=== PATIENT | male | born 1965 | race Caucasian/White ===

== ENCOUNTER 2022-07-04 14:59 | Emergency (ER) | payer OTHER, SELFPAY ==
[2022-07-04] VITALS (10 sets, daily range): BP systolic 139–181; BP diastolic 78–121; PULSE 95–118; RESP 11–20; TEMP 36.8–37.2; O2SAT 94–99; BMI 27.1
--- NOTE | ~2022-07-04 | XR_ITS ---
EXAMINATION: XR CHEST CLINICAL INFORMATION: Fever COMPARISON: None available. TECHNIQUE: Frontal view of the chest was obtained. FINDINGS: No significant abnormality is noted involving the heart, lungs, mediastinum, bony thorax or soft tissues. XR/XR chest 1V IMPRESSION: Unremarkable examination.
--- NOTE | 2022-07-04 15:06 | ED.GENADULT ---
HPI - General Adult General Chief complaint: ETOH/Substance Use <ALPA Sadler - Last Filed: 07/04/22 15:10> Stated complaint: HBP/Sweating/Shakiness/Started new meds <ALPA Sadler - Last Filed: 07/04/22 15:10> Time Seen by Provider: 07/04/22 16:10 <ALPA Sadler - Last Filed: 07/04/22 15:10> Source: patient <Jeny Green MD - Last Filed: 07/04/22 20:14> Mode of arrival: ambulatory <Jeny Green MD - Last Filed: 07/04/22 20:14> Limitations: no limitations <Jeny Green MD - Last Filed: 07/04/22 20:14> History of Present Illness HPI narrative: Patient comes to the emergency room complaining of shakiness, lightheadedness. Patient states that this started approximately a week ago. Of note, patient has been seen at urgent care and was recently started on amlodipine. However, patient's blood pressure has been high. On arrival to the ED, it was noted that patient has shakiness/tremor, elevated blood pressure, tachycardic. Patient admits that he drinks daily. Patient's was at bedside states that her is losing count of how much he drinks. Usually drinks approximately 15 shots every weekend. Last drink was almost 24 hours ago. Patient states that he has never gone to alcohol withdrawal in the past. <Jeny Green MD - Last Filed: 07/04/22 20:14> Related Data Home medications: Previous Rx's Medication Instructions Recorded chlordiazepoxide HCl 5 mg capsule 5 mg PO TID PRN agitation #10 caps 07/04/22 <ALPA Sadler - Last Filed: 07/04/22 15:10> Allergies/adverse reactions: Allergies Allergy/AdvReac Type Severity Reaction Status Date / Time Naproxen Allergy Unknown rash Uncoded 08/03/11 00:00 <ALPA Sadler - Last Filed: 07/04/22 15:10> Review of Systems Review of Systems: Constitutional : No Weight loss, No Fever, No Chills, No Night Sweats, No Fatigue, No Malaise, shakiness/tremors ENT/Mouth : No Hearing loss, No Ear Pain, No Nasal Congestion, No Sinus Pain, No Hoarseness, No sore throat, No Rhinorrhea, No Swallowing Difficulty Eyes: No Eye Pain, No Swelling, No Redness, No Foreign Body, No Discharge, No Vision Changes Cardiovascular : No Chest Pain, No SOB, No Dyspnea on Exertion, No Orthopnea, No Edema, No Palpitations Respiratory : No Cough, No Sputum, No Wheezing, No Smoke Exposure, No Dyspnea Gastrointestinal : No Nausea, No Vomiting, No Diarrhea, No Constipation, No abdominal Pain, No Hematochezia, No Melena Genitourinary : no irregular bleeding, No Dysuria, No Urinary Frequency, No Hematuria, No Urinary Incontinence, No Urgency, No Flank Pain, No Urinary Flow Changes, No Hesitancy Musculoskeletal : No joint pain, No Myalgias, No Joint Swelling Skin : No Skin Lesions, No rash Neuro : No Weakness, No Numbness, No Paresthesias, No Loss of Consciousness, no headache, complaining of intermittent lightheadedness. Psych : No Anxiety/Panic, No Depression, No SI/HI/AH/VH, No Social Issues, Heme/Lymph: No Bruising, No Bleeding,No Lymphadenopathy Endocrine : No Polyuria, No Polydipsia, No Temperature Intolerance <Jeny Green MD - Last Filed: 07/04/22 20:14> [facility] Past Medical History Medical History: Medical History (Updated 07/04/22 @ 20:11 by Jeny rGeen MD) Hypertension <ALPA Sadler - Last Filed: 07/04/22 15:10> Social History Social History: Social History Alcohol intake: current Alcohol intake frequency: 3 or more drinks per day Alcohol type: hard liquor Smoked in Last 30 Days: Yes Use of substances other than those prescribed or required for medical reasons: Yes Substance Use Type: Marijuana Advance Directives: No Advance Directives Information Provided: Yes <ALPA Sadler - Last Filed: 07/04/22 15:10> Physical Exam ED Vital Signs: Vital Signs - 24 hr 07/04/22 15:05 07/04/22 15:37 07/04/22 16:32 Temperature 99.0 F 98.4 F Pulse Rate 118 H 113 H 109 H Respiratory Rate 20 18 11 L Blood Pressure 144/121 H 153/94 H 158/93 H Pulse Oximetry 97 99 96 Oxygen Delivery Method Room Air Room Air Room Air 07/04/22 17:02 07/04/22 19:25 07/04/22 18:22 Temperature 98.6 F Pulse Rate 102 H 97 95 Respiratory Rate 15 16 Blood Pressure 153/88 H 148/89 H 139/78 Pulse Oximetry 96 94 Oxygen Delivery Method Room Air Room Air 07/04/22 19:38 07/04/22 19:39 Temperature Pulse Rate 104 H 111 H Respiratory Rate Blood Pressure 163/91 H 181/100 H Pulse Oximetry Oxygen Delivery Method BMI result Body Mass Index 27.1 <ALPA Sadler - Last Filed: 07/04/22 15:10> Vital Signs - 24 hr 07/04/22 15:05 07/04/22 15:37 07/04/22 16:32 Temperature 99.0 F 98.4 F Pulse Rate 118 H 113 H 109 H Respiratory Rate 20 18 11 L Blood Pressure 144/121 H 153/94 H 158/93 H Pulse Oximetry 97 99 96 Oxygen Delivery Method Room Air Room Air Room Air 07/04/22 17:02 07/04/22 19:25 07/04/22 18:22 Temperature 98.6 F Pulse Rate 102 H 97 95 Respiratory Rate 15 16 Blood Pressure 153/88 H 148/89 H 139/78 Pulse Oximetry 96 94 Oxygen Delivery Method Room Air Room Air 07/04/22 19:38 07/04/22 19:39 Temperature Pulse Rate 104 H 111 H Respiratory Rate Blood Pressure 163/91 H 181/100 H Pulse Oximetry Oxygen Delivery Method BMI result Body Mass Index 27.1 <Jeny Green MD - Last Filed: 07/04/22 20:14> Const Other: Appearance: Alert. Oriented X3. No acute distress. Tremulous Eyes: Pupils equal, round and reactive to light. ENT: Pharynx normal. Neck: Normal inspection. Neck supple. No lymph nodes noted. No crepitus CVS: Tachycardic, heart rate 110, with regular rhythm. Pulses normal. Normal S1 and S2 Respiratory: No respiratory distress. Breath sounds normal. No Wheezing. No rales Abdomen: Soft and nontender. No rigidity. No distention. Skin: Skin warm , diaphoretic. Normal skin color. Normal skin turgor. Extremities: No lower extremity edema. No Lacerations. No Rash Neuro: Oriented X 3. No motor deficit. No sensory deficit. Moving all extremities. No slurred speech. CN 2 through 12 grossly intact Psych: calm, cooperative, normal affect <Jeny Green MD - Last Filed: 07/04/22 20:14> Course Course Course Narrative: RMMyriam - 56 yo male with history of recently diagnosed HTN started on amlodipine by Urgent Care a few days ago, heavy smoker, daily ETOH presents to the ER for evaluation of dizziness, shakiness that started today when he woke up. Last drink was yesterday. No history of withdrawal in the past. HR 110s in triage, diaphoretic and appears to be withdrawing. Plan: labs, CIWA, IVF, ativan. brought directly to treatment room <ALPA Sadler - Last Filed: 07/04/22 15:10> Medications Administered Generic Name Dose Route Start Last Admin Trade Name Freq PRN Reason Stop Dose Admin Magnesium Sulfate 2 gm in 50 mls @ 25 mls/hr 07/04/22 18:21 07/04/22 18:29 Magnesium Sulfate/H2o IV 07/04/22 20:20 25 mls/hr ONCE ONE Administration Discontinued Medications Generic Name Dose Route Start Last Admin Trade Name Freq PRN Reason Stop Dose Admin Sodium Chloride 1,000 mls @ 999 mls/hr 07/04/22 15:15 07/04/22 17:01 Ns IVCONT 07/04/22 16:15 Infused .Q1H1M TOMAS Infusion Sodium Chloride 1,000 mls @ 999 mls/hr 07/04/22 16:26 07/04/22 17:01 Ns IVCONT 07/04/22 17:26 999 mls/hr .Q1H1M ONE Administration Lorazepam 1 mg 07/04/22 15:07 07/04/22 15:32 Lorazepam 2 Mg/Ml Vial IVPUSH 07/04/22 15:08 1 mg ONCE ONE Administration Lorazepam 2 mg 07/04/22 16:23 07/04/22 16:57 Lorazepam 2 Mg/Ml Vial IVPUSH 07/04/22 16:24 2 mg ONCE ONE Administration <ALPA Sadler - Last Filed: 07/04/22 15:10> Medications Administered Generic Name Dose Route Start Last Admin Trade Name Freq PRN Reason Stop Dose Admin Magnesium Sulfate 2 gm in 50 mls @ 25 mls/hr 07/04/22 18:21 07/04/22 18:29 Magnesium Sulfate/H2o IV 07/04/22 20:20 25 mls/hr ONCE ONE Administration Discontinued Medications Generic Name Dose Route Start Last Admin Trade Name Nasreen PRN Reason Stop Dose Admin Sodium Chloride 1,000 mls @ 999 mls/hr 07/04/22 15:15 07/04/22 17:01 Ns IVCONT 07/04/22 16:15 Infused .Q1H1M TOMAS Infusion Sodium Chloride 1,000 mls @ 999 mls/hr 07/04/22 16:26 07/04/22 17:01 Ns IVCONT 07/04/22 17:26 999 mls/hr .Q1H1M ONE Administration Lorazepam 1 mg 07/04/22 15:07 07/04/22 15:32 Lorazepam 2 Mg/Ml Vial IVPUSH 07/04/22 15:08 1 mg ONCE ONE Administration Lorazepam 2 mg 07/04/22 16:23 07/04/22 16:57 Lorazepam 2 Mg/Ml Vial IVPUSH 07/04/22 16:24 2 mg ONCE ONE Administration <Jeny Green MD - Last Filed: 07/04/22 20:14> Medical Decision Making Medical Decision Making MDM Narrative: -patient received 3 mg of IV Ativan, patient states that he feels much better. Heart rate down to the 90s. -I discussed with the patient that he should be admitted for alcohol withdrawal and treatment was offered to him. Patient made aware that alcohol withdrawal can cause life-threatening seizures. Patient respectfully declined. Patient states that he only wants outpatient treatment information. Patient does not want to be admitted and would like to be discharged home. Patient feeling better. Care team evaluated the patient, gave him information. <Jeny Green MD - Last Filed: 07/04/22 20:14> Differential Diagnosis Differential Diagnoses: The differential diagnosis associated with the presentation includes (Substance abuse, alcohol withdrawal, anxiety) <Jeny Green MD - Last Filed: 07/04/22 20:14> Admission/Observation Consideration of admission/observation: Escalation of care including admission/observation considered (Patient declined to be admitted) <Jeny Green MD - Last Filed: 07/04/22 20:14> Consult Healthcare Provider Management of the patient was discussed with: Behavioral Health Provider <Jeny Green MD - Last Filed: 07/04/22 20:14> Lab Data MDM Lab Attestation statement: I reviewed the patient's lab results. <Jeny Green MD - Last Filed: 07/04/22 20:14> Result Diagrams: 07/04/22 15:39 07/04/22 15:39 <ALPA Sadler - Last Filed: 07/04/22 15:10> Labs: Lab Results 07/04/22 07/04/22 07/04/22 Range/Units 15:39 15:39 15:40 WBC 13.8 H (4.8-10.8) X10*3/uL RBC 5.34 (4.60-5.80) X10*6/uL Hgb 17.4 (14.0-18.0) g/dl Hct 49.8 (42.0-52.0) % MCV 93.3 (80.0-98.0) fL MCH 32.6 (27.0-33.0) pg MCHC 34.9 (31.0-36.0) g/dl RDW 13.1 (11.0-16.0) % Plt Count 305 (160-400) X10*3/uL MPV 8.2 L (9.4-12.4) fL Immature Gran % (Auto) 0.5 H (0.0-0.4) % Neut % (Auto) 79.1 H (45-73) % Lymph % (Auto) 14.6 L (20-40) % [place] % (Auto) 5.3 (2-11) % Eos % (Auto) 0.0 (0-4) % Baso % (Auto) 0.5 (0-2) % Lymph # (Auto) 2.0 (1.2-4.9) X10*3/uL [place] # (Auto) 0.7 (0.1-1.2) X10*3/uL Eos # (Auto) 0.0 (0.0-0.4) X10*3/uL Baso # (Auto) 0.1 (0.0-0.2) X10*3/uL Abs Immat Gran (auto) 0.07 H (0.00-0.03) X10*3/uL Absolute Neuts (auto) 10.9 H (2.0-8.3) x10*3/uL Absolute Nucleated RBC 0.000 (0.0-0.012) X10*3/uL Nucleated RBC % (auto) 0.0 (0.0-0.2) /100WBC Sodium 142 (135-145) mmol/L Potassium 4.2 (3.3-5.1) mmol/L Chloride 103 (96-108) mmol/L Carbon Dioxide 27 (22-29) mmol/L Anion Gap 16 (12-20) BUN 6 L (9-16) mg/dL Creatinine 1.05 (0.5-1.4) mg/dL Estim Creat Clear Calc 83.6 Estimated GFR > 60 Random Glucose 119 H (60-115) mg/dL Calcium 9.6 (8.4-10.2) mg/dL Magnesium 1.4 L* (1.6-2.6) mg/dL Total Bilirubin 0.8 (0.0-1.0) mg/dL Direct Bilirubin 0.3 (0.0-0.5) mg/dL AST 33 (5-37) U/L ALT 32 (0-40) U/L Alkaline Phosphatase 73 (39-117) U/L Troponin I High Sens 3.6 (<3.5-35.0) ng/L Total Protein 7.5 (6.5-8.0) g/dL Albumin 4.7 (3.5-5.0) g/dL Lipase 24 (8-78) U/L TSH 8.59 H (0.32-4.0) uIU/mL Free T4 0.80 (0.71-1.85) ng/dL Urine Color Urine Appearance Urine pH (5.0-9.0) Ur Specific [place] (1.005-1.025) Urine Protein (Neg-Trace) mg/dL Urine Glucose (UA) (Negative) mg/dL Urine Ketones (Negative) mg/dL Urine Blood (Negative) Urine Nitrite (Negative) Ur Leukocyte Esterase (Negative) Urine Opiates Screen (Not Detect) Urine Fentanyl Screen (Not Detect) Ur Barbiturates Screen (Not Detect) Ur Phencyclidine Scrn (Not Detect) Ur Amphetamines Screen (Not Detect) U Benzodiazepines Scrn (Not Detect) Urine Cocaine Screen (Not Detect) U Marijuana (THC) Screen (Not Detect) Ethyl Alcohol < 10 mg/dL 07/04/22 07/04/22 Range/Units 19:45 19:45 WBC (4.8-10.8) X10*3/uL RBC (4.60-5.80) X10*6/uL Hgb (14.0-18.0) g/dl Hct (42.0-52.0) % MCV (80.0-98.0) fL MCH (27.0-33.0) pg MCHC (31.0-36.0) g/dl RDW (11.0-16.0) % Plt Count (160-400) X10*3/uL MPV (9.4-12.4) fL Immature Gran % (Auto) (0.0-0.4) % Neut % (Auto) (45-73) % Lymph % (Auto) (20-40) % [place] % (Auto) (2-11) % Eos % (Auto) (0-4) % Baso % (Auto) (0-2) % Lymph # (Auto) (1.2-4.9) X10*3/uL Mil[place] # (Auto) (0.1-1.2) X10*3/uL Eos # (Auto) (0.0-0.4) X10*3/uL Baso # (Auto) (0.0-0.2) X10*3/uL Abs Immat Gran (auto) (0.00-0.03) X10*3/uL Absolute Neuts (auto) (2.0-8.3) x10*3/uL Absolute Nucleated RBC (0.0-0.012) X10*3/uL Nucleated RBC % (auto) (0.0-0.2) /100WBC Sodium (135-145) mmol/L Potassium (3.3-5.1) mmol/L Chloride (96-108) mmol/L Carbon Dioxide (22-29) mmol/L Anion Gap (12-20) BUN (9-16) mg/dL Creatinine (0.5-1.4) mg/dL Estim Creat Clear Calc Estimated GFR Random Glucose (60-115) mg/dL Calcium (8.4-10.2) mg/dL Magnesium (1.6-2.6) mg/dL Total Bilirubin (0.0-1.0) mg/dL Direct Bilirubin (0.0-0.5) mg/dL AST (5-37) U/L ALT (0-40) U/L Alkaline Phosphatase (39-117) U/L Troponin I High Sens (<3.5-35.0) ng/L Total Protein (6.5-8.0) g/dL Albumin (3.5-5.0) g/dL Lipase (8-78) U/L TSH (0.32-4.0) uIU/mL Free T4 (0.71-1.85) ng/dL Urine Color Yellow Urine Appearance Clear Urine pH 7.5 (5.0-9.0) Ur Specific [place] 1.015 (1.005-1.025) Urine Protein Trace (Neg-Trace) mg/dL Urine Glucose (UA) Negative (Negative) mg/dL Urine Ketones Negative (Negative) mg/dL Urine Blood Negative (Negative) Urine Nitrite Negative (Negative) Ur Leukocyte Esterase Negative (Negative) Urine Opiates Screen Not Detected (Not Detect) Urine Fentanyl Screen Not Detected (Not Detect) Ur Barbiturates Screen Not Detected (Not Detect) Ur Phencyclidine Scrn Not Detected (Not Detect) Ur Amphetamines Screen Not Detected (Not Detect) U Benzodiazepines Scrn Not Detected (Not Detect) Urine Cocaine Screen Not Detected (Not Detect) U Marijuana (THC) Screen POSITIVE H (Not Detect) Ethyl Alcohol mg/dL <ALPA Sadler - Last Filed: 07/04/22 15:10> Lab Results 07/04/22 07/04/22 07/04/22 Range/Units 15:39 15:39 15:40 WBC 13.8 H (4.8-10.8) X10*3/uL RBC 5.34 (4.60-5.80) X10*6/uL Hgb 17.4 (14.0-18.0) g/dl Hct 49.8 (42.0-52.0) % MCV 93.3 (80.0-98.0) fL MCH 32.6 (27.0-33.0) pg MCHC 34.9 (31.0-36.0) g/dl RDW 13.1 (11.0-16.0) % Plt Count 305 (160-400) X10*3/uL MPV 8.2 L (9.4-12.4) fL Immature Gran % (Auto) 0.5 H (0.0-0.4) % Neut % (Auto) 79.1 H (45-73) % Lymph % (Auto) 14.6 L (20-40) % [place] % (Auto) 5.3 (2-11) % Eos % (Auto) 0.0 (0-4) % Baso % (Auto) 0.5 (0-2) % Lymph # (Auto) 2.0 (1.2-4.9) X10*3/uL [place] # (Auto) 0.7 (0.1-1.2) X10*3/uL Eos # (Auto) 0.0 (0.0-0.4) X10*3/uL Baso # (Auto) 0.1 (0.0-0.2) X10*3/uL Abs Immat Gran (auto) 0.07 H (0.00-0.03) X10*3/uL Absolute Neuts (auto) 10.9 H (2.0-8.3) x10*3/uL Absolute Nucleated RBC 0.000 (0.0-0.012) X10*3/uL Nucleated RBC % (auto) 0.0 (0.0-0.2) /100WBC Sodium 142 (135-145) mmol/L Potassium 4.2 (3.3-5.1) mmol/L Chloride 103 (96-108) mmol/L Carbon Dioxide 27 (22-29) mmol/L Anion Gap 16 (12-20) BUN 6 L (9-16) mg/dL Creatinine 1.05 (0.5-1.4) mg/dL Estim Creat Clear Calc 83.6 Estimated GFR > 60 Random Glucose 119 H (60-115) mg/dL Calcium 9.6 (8.4-10.2) mg/dL Magnesium 1.4 L* (1.6-2.6) mg/dL Total Bilirubin 0.8 (0.0-1.0) mg/dL Direct Bilirubin 0.3 (0.0-0.5) mg/dL AST 33 (5-37) U/L ALT 32 (0-40) U/L Alkaline Phosphatase 73 (39-117) U/L Troponin I High Sens 3.6 (<3.5-35.0) ng/L Total Protein 7.5 (6.5-8.0) g/dL Albumin 4.7 (3.5-5.0) g/dL Lipase 24 (8-78) U/L TSH 8.59 H (0.32-4.0) uIU/mL Free T4 0.80 (0.71-1.85) ng/dL Urine Color Urine Appearance Urine pH (5.0-9.0) Ur Specific [place] (1.005-1.025) Urine Protein (Neg-Trace) mg/dL Urine Glucose (UA) (Negative) mg/dL Urine Ketones (Negative) mg/dL Urine Blood (Negative) Urine Nitrite (Negative) Ur Leukocyte Esterase (Negative) Urine Opiates Screen (Not Detect) Urine Fentanyl Screen (Not Detect) Ur Barbiturates Screen (Not Detect) Ur Phencyclidine Scrn (Not Detect) Ur Amphetamines Screen (Not Detect) U Benzodiazepines Scrn (Not Detect) Urine Cocaine Screen (Not Detect) U Marijuana (THC) Screen (Not Detect) Ethyl Alcohol < 10 mg/dL 07/04/22 07/04/22 Range/Units 19:45 19:45 WBC (4.8-10.8) X10*3/uL RBC (4.60-5.80) X10*6/uL Hgb (14.0-18.0) g/dl Hct (42.0-52.0) % MCV (80.0-98.0) fL MCH (27.0-33.0) pg MCHC (31.0-36.0) g/dl RDW (11.0-16.0) % Plt Count (160-400) X10*3/uL MPV (9.4-12.4) fL Immature Gran % (Auto) (0.0-0.4) % Neut % (Auto) (45-73) % Lymph % (Auto) (20-40) % [place] % (Auto) (2-11) % Eos % (Auto) (0-4) % Baso % (Auto) (0-2) % Lymph # (Auto) (1.2-4.9) X10*3/uL [place] # (Auto) (0.1-1.2) X10*3/uL Eos # (Auto) (0.0-0.4) X10*3/uL Baso # (Auto) (0.0-0.2) X10*3/uL Abs Immat Gran (auto) (0.00-0.03) X10*3/uL Absolute Neuts (auto) (2.0-8.3) x10*3/uL Absolute Nucleated RBC (0.0-0.012) X10*3/uL Nucleated RBC % (auto) (0.0-0.2) /100WBC Sodium (135-145) mmol/L Potassium (3.3-5.1) mmol/L Chloride (96-108) mmol/L Carbon Dioxide (22-29) mmol/L Anion Gap (12-20) BUN (9-16) mg/dL Creatinine (0.5-1.4) mg/dL Estim Creat Clear Calc Estimated GFR Random Glucose (60-115) mg/dL Calcium (8.4-10.2) mg/dL Magnesium (1.6-2.6) mg/dL Total Bilirubin (0.0-1.0) mg/dL Direct Bilirubin (0.0-0.5) mg/dL AST (5-37) U/L ALT (0-40) U/L Alkaline Phosphatase (39-117) U/L Troponin I High Sens (<3.5-35.0) ng/L Total Protein (6.5-8.0) g/dL Albumin (3.5-5.0) g/dL Lipase (8-78) U/L TSH (0.32-4.0) uIU/mL Free T4 (0.71-1.85) ng/dL Urine Color Yellow Urine Appearance Clear Urine pH 7.5 (5.0-9.0) Ur Specific [place] 1.015 (1.005-1.025) Urine Protein Trace (Neg-Trace) mg/dL Urine Glucose (UA) Negative (Negative) mg/dL Urine Ketones Negative (Negative) mg/dL Urine Blood Negative (Negative) Urine Nitrite Negative (Negative) Ur Leukocyte Esterase Negative (Negative) Urine Opiates Screen Not Detected (Not Detect) Urine Fentanyl Screen Not Detected (Not Detect) Ur Barbiturates Screen Not Detected (Not Detect) Ur Phencyclidine Scrn Not Detected (Not Detect) Ur Amphetamines Screen Not Detected (Not Detect) U Benzodiazepines Scrn Not Detected (Not Detect) Urine Cocaine Screen Not Detected (Not Detect) U Marijuana (THC) Screen POSITIVE H (Not Detect) Ethyl Alcohol mg/dL <Jeny Green MD - Last Filed: 07/04/22 20:14> Discharge Plan Discharge Clinical Impression: Alcohol withdrawal <ALPA Sadler - Last Filed: 07/04/22 15:10> Patient Disposition: Home, Self-Care <ALPA Sadler - Last Filed: 07/04/22 15:10> Instructions: Alcohol Withdrawal (ED) <ALPA Sadler - Last Filed: 07/04/22 15:10> Additional Instructions: Please follow-up with your primary care physician tomorrow. If you have any worsening or new symptoms, please return to the emergency room or call 911 <ALPA Sadler - Last Filed: 07/04/22 15:10> Prescriptions: New chlordiazepoxide HCl 5 mg capsule 5 mg PO TID PRN (Reason: agitation) Qty: 10 0RF <ALPA Sadler - Last Filed: 07/04/22 15:10>
--- NOTE | 2022-07-04 15:07 | ECG_ITS ---
Test Reason : DIZZINESS Blood Pressure : / mmHG Vent. Rate : 109 BPM Atrial Rate : 109 BPM P-R Int : 126 ms QRS Dur : 076 ms QT Int : 346 ms P-R-T Axes : 066 009 043 degrees QTc Int : 465 ms Sinus tachycardia Otherwise normal ECG No previous ECGs available Referred By: Zuly Barone Electronically Signed By:LISSETTE BACA
[2022-07-04] MEDS: LORazepam 2 MG/ML VIAL 1 MG IVPUSH (15:32)
[2022-07-04] MEDS: 0.9 % Sodium Chloride 1,000 ML 999 ML IVCONT ×2 (15:35→17:01)
[2022-07-04 15:46] LABS: MANUAL DIFF FLAG NO
[2022-07-04 15:47] LABS: Basophils Absolute Auto 0.1 X10*3/uL (0.0-0.2); Basophils Percent Auto 0.5 % (0-2); Hematocrit 49.8 % (42.0-52.0); Hemoglobin 17.4 g/dl (14.0-18.0); Imm Gran Abs Auto 0.07 X10*3/uL (0.00-0.03); Imm Gran Pct Auto 0.5 % (0.0-0.4); Lymphocytes Percent Auto 14.6 % (20-40); Mean Corpuscular HGB Conc 34.9 g/dl (31.0-36.0); Mean Corpuscular Hemoglobin 32.6 pg (27.0-33.0); Mean Corpuscular Volume 93.3 fL (80.0-98.0); Mean Platelet Volume 8.2 fL (9.4-12.4); Monocytes Absolute Auto 0.7 X10*3/uL (0.1-1.2); Monocytes Percent Auto 5.3 % (2-11); Neutrophils Absolute Auto 10.9 x10*3/uL (2.0-8.3); Neutrophils Percent Auto 79.1 % (45-73); Platelet Count 305 X10*3/uL (160-400); Red Blood Count 5.34 X10*6/uL (4.60-5.80); Red Cell Distribution Width 13.1 % (11.0-16.0); White Blood Count 13.8 X10*3/uL (4.8-10.8)
[2022-07-04 16:11] LABS: Troponin-I High Sensitivity 3.6 ng/L (<3.5-35.0)
[2022-07-04 16:25] LABS: TSH reflex Free T4 8.59 uIU/mL (0.32-4.0)
[2022-07-04 16:32] LABS: Alanine Aminotransferase 32 U/L (0-40); Albumin Level 4.7 g/dL (3.5-5.0); Alkaline Phosphatase 73 U/L (39-117); Anion Gap 16 (12-20); Aspartate Amino Transferase 33 U/L (5-37); Bilirubin Direct 0.3 mg/dL (0.0-0.5); Bilirubin Total 0.8 mg/dL (0.0-1.0); Blood Urea Nitrogen 6 mg/dL (9-16); Calcium 9.6 mg/dL (8.4-10.2); Carbon Dioxide 27 mmol/L (22-29); Chloride 103 mmol/L (96-108); Creatinine Clr Calc Pharmacy 83.6; Estimated Glomerular Filt Rate > 60; Ethanol < 10 mg/dL; Glucose Random 119 mg/dL (60-115); Lipase 24 U/L (8-78); Magnesium 1.4 mg/dL (1.6-2.6); Potassium 4.2 mmol/L (3.3-5.1); Sodium 142 mmol/L (135-145); Total Protein 7.5 g/dL (6.5-8.0)
[2022-07-04] MEDS: LORazepam 2 MG/ML VIAL IVPUSH (16:57)
[2022-07-04] MEDS: Magnesium Sulfate/H2O 2 GM/50 ML PIGGYBACK IV (18:29)
--- NOTE | 2022-07-04 19:51 | PC.NURSE ---
Patient able to get up and ambulate to bathroom, patient gave a urine sample. Patient is calm and cooperative with staff at this time.
[2022-07-04 19:52] LABS: Appearance Urine Clear; Color Urine Yellow; Glucose Urine UA Negative (Negative); Leukocyte Esterase Urine Negative (Negative); Nitrite Urine Negative (Negative); PH 7.5 (5.0-9.0); Specific Gravity - Urine 1.015 (1.005-1.025); Urine Blood Negative (Negative); Urine Ketones Negative (Negative); Urine Protein Trace mg/dL (Neg-Trace)
[2022-07-04 20:05] LABS: Cannabinoid Screen Urine POSITIVE (Not Detect); Fentanyl, urine Not Detected (Not Detect); Opiate Screen Urine Not Detected (Not Detect)
[2022-07-04 20:06] LABS: Amphetamine Screen Urine Not Detected (Not Detect); Barbiturates, Urine Not Detected (Not Detect); Benzodiazepines Screen Urine Not Detected (Not Detect); Cocaine Screen Urine Not Detected (Not Detect); Phencyclidine Screen Urine Not Detected (Not Detect)
--- NOTE | 2022-07-04 20:35 | MHC.CARE ---
CARE Team was consulted to discuss Outpatient services to address recovery. CARE Team will refer to outpatient therapy and control and recovery combat rescue. was provided information for allies in recovery.
--- NOTE | 2022-07-05 14:36 | MHC.CARE ---
Referral sent to [facility] for individual therapy, RAD Team to f/u on 07/06
== END 2022-07-04 20:39 | disposition home or self-care (01) ==
PROVIDERS: Physician Assistant; Emergency Provider Emergency Medicine
DX: F10.130 Alcohol abuse with withdrawal, uncomplicated (principal); Y90.0 Blood alcohol level of less than 20 mg/100 ml; R42 Dizziness and giddiness; R00.0 Tachycardia, unspecified; R25.1 Tremor, unspecified; I10 Essential (primary) hypertension; F17.210 Nicotine dependence, cigarettes, uncomplicated; F12.90 Cannabis use, unspecified, uncomplicated; Z79.899 Other long term (current) drug therapy
CPT/HCPCS: 36415; 71045; 80048; 80076; 80307; 81003; 82077; 83690; 83735; 84439; 84443; 84484; 85025; 93005; 96361; 96374; 96375; 96376; 99285; J2060; J3475